=== PATIENT | female | born 1990 | race Caucasian/White ===

== ENCOUNTER 2019-06-19 05:30 | Inpatient (IN) | payer BC ==
[2019-06-19] MEDS ORDERED: CEFAZOLIN 2 GM in Premix Bag 1 BAG IVPB SCH (05:32)
[2019-06-19] MEDS ORDERED: Lactated Ringer's 1,000 ML IV SCH (05:32)
[2019-06-19] MEDS ORDERED: Bicitra 30 ML UDCUP PO SCH (05:32)
[2019-06-19] MEDS ORDERED: Ondansetron PF 4 MG/2 ML Vial IVP PRN ×3 (05:32→11:06)
[2019-06-19] MEDS ORDERED: Promethazine HCl 25 MG/ML VIAL IM PRN ×2 (05:32→06:57)
[2019-06-19] MEDS ORDERED: hydrALAZINE 20 MG/ML VIAL SLOW IVP PRN ×2 (05:32→11:06)
[2019-06-19 06:17] VITALS: BMI 42.0
[2019-06-19] MEDS ORDERED: MORPHINE 5 MG/10 ML PF VIAL ONE (06:47)
[2019-06-19] MEDS ORDERED: Ondansetron PF 4 MG/2 ML Vial ONE (06:48)
[2019-06-19] MEDS ORDERED: EPHEDRINE 25 MG/5 ML SYRINGE ONE (06:48)
[2019-06-19] MEDS ORDERED: Oxytocin 10 UNITS/ML VIAL ONE (06:48)
[2019-06-19] MEDS ORDERED: PHENYLEPHRINE-NS 100 MCG/ML 10 ML SYRINGE ONE (06:48)
[2019-06-19 06:57] LABS: Syphilis Antibody Nonreactive (Nonreactive); Syphilis Antibody Index 0.06 S/CO (<1.00 Non-Reactive)
[2019-06-19] MEDS ORDERED: L&D-Morphine 4 MG/ML VIAL SLOW IVP PRN (06:57)
[2019-06-19] MEDS ORDERED: diphenhydrAMINE 50 MG/ML VIAL IVP PRN (06:57)
[2019-06-19] MEDS ORDERED: Promethazine HCl 25 MG SUPP PR PRN (06:57)
[2019-06-19] MEDS ORDERED: Naloxone HCl 0.4 mg/ml Vial IVP PRN ×2 (06:57)
[2019-06-19] MEDS ORDERED: Naloxone HCl 0.4 mg/ml Vial IV PRN (06:57)
[2019-06-19] MEDS ORDERED: Ondansetron HCl/PF 4 MG/2 ML Vial IVP PRN (06:57)
[2019-06-19] MEDS ORDERED: HYDROmorphone 2 MG/ML VIAL SLOW IVP PRN (06:57)
[2019-06-19] MEDS ORDERED: Meperidine HCl/PF 25 MG/ML VIAL SLOW IVP PRN (06:57)
[2019-06-19 06:58] LABS: HBSAg Index 0.22 S/CO (0-0.99); Hep B Surf Ag Non-Reactive S/CO (NonReactive)
[2019-06-19 06:59] LABS: Hemoglobin 13.8 g/dL (12.0-16.0); Mean Corpuscular HGB CONC 34.4 g/dL (32.0-36.0); Mean Corpuscular Hemoglobin 31.4 pg (27.0-31.0); Mean Corpuscular Volume 91.3 fL (78.0-98.0); Mean Platelet Volume 10.3 fL (7.4-10.4); Platelet Count 109 thou/uL (130-400); RBC Distribution Width 15.1 % (11.5-14.5); Red Blood Cell (RBC) Count 4.39 mill/uL (4.20-5.40); White Blood Cell (WBC) Count 11.1 thou/uL (4.8-10.8)
[2019-06-19] MEDS ORDERED: Ketorolac Tromethamine 30 MG/ML VIAL IVP SCH (07:00)
[2019-06-19] MEDS ORDERED: Communication Order-Pharmacy FS SCH (07:00)
[2019-06-19] MEDS ORDERED: Methylergonovine 0.2 MG/ML VIAL ONE (10:17)
[2019-06-19] MEDS ORDERED: Misoprostol 200 MCG TAB ONE (10:17)
[2019-06-19] MEDS ORDERED: Misoprostol 200 MCG TAB PR SCH (10:45)
[2019-06-19] MEDS ORDERED: Methylergonovine 0.2 MG/ML VIAL IM SCH (10:45)
[2019-06-19] MEDS ORDERED: diphenhydrAMINE 25 MG CAP PO PRN (11:06)
[2019-06-19] MEDS ORDERED: Acetaminophen 325 MG TAB PO PRN (11:06)
[2019-06-19] MEDS ORDERED: Bisacodyl 10 MG SUPP PR PRN (11:06)
[2019-06-19] MEDS ORDERED: Simethicone Chewable 80 MG TAB PO PRN (11:06)
[2019-06-19] MEDS ORDERED: Acetaminophen/Codeine 30-300mg Tablet PO PRN (11:06)
[2019-06-19] MEDS ORDERED: Lanolin Ointment 7 GM TUBE TOP PRN (11:06)
[2019-06-19] MEDS: Enoxaparin Sodium 30 MG/0.3 ML SYRINGE SC SCH (12:21)
[2019-06-19] MEDS: Prenatal Vitamin 1 TAB PO SCH (12:21)
--- NOTE | 2019-06-19 12:30 | OP ---
DATE OF PROCEDURE: 06/19/2019 PREOPERATIVE DIAGNOSIS: 38-week 3 day intrauterine diamniotic dichorionic twin with baby B in unstable lie. POSTOPERATIVE DIAGNOSIS: 38-week 3 day intrauterine diamniotic dichorionic twin with baby B in unstable lie. Status post delivery. PROCEDURE: Primary low transverse section. [employer] CONSULTANT: Dr. Forde substituted out for Dr. Oliver after delivery of babies. ANESTHESIA: Spinal anesthetic. COMPLICATIONS: No complications. DESCRIPTION OF PROCEDURE: After adequate spinal anesthetic, patient was placed in supine position. A wedge was placed under the right flank. A Cheng catheter was placed and the abdomen was prepped and draped in usual sterile technique. A Pfannenstiel incision was made in the inferior aspect of the abdomen. Subcutaneous tissue opened with sharp dissection. The fascia was opened with sharp dissection. Peritoneum opened with sharp and blunt dissection. Noted the abdomen was still with a gravid uterus. An Frank O retractor was placed and a low-transverse incision was made on the uterus. Membranes were ruptured and clear fluid was encountered. Baby A was delivered from vertex presentation without difficulty. Infant breathed and cried spontaneously. The cord was clamped and cut and infant was handed to the care of the neonatology team. The membranes were ruptured for baby B. Clear fluid was encountered and a viable male infant was delivered from footling breech presentation without difficulty. Infant breathed and cried spontaneously. The cord was clamped and cut and handed to the care of the neonatology team. Cord blood was obtained from each umbilical cord. An additional clamp was placed over the cord for baby B. The placenta was delivered manually, appeared intact and was sent to pathology. Wet lap was used to wipe clean the uterus and hysterotomy edges were grasped with ring forceps. Hysterotomy was then closed in one layer continuous fashion with 1 Monocryl with good hemostasis. The gutters were checked, few clots were removed. There was no active bleeding. The peritoneal edges were then closed in continuous fashion using 2-0 chromic and the fascia was then closed in continuous fashion using 0 Vicryl. Sponge and instrument counts were correct. The subcutaneous tissue was then irrigated and the subcutaneous tissue was then closed in continuous fashion using 0 plain suture. The skin was then closed using 4-0 Monocryl in subcuticular fashion. Patient tolerated the procedure well, did go to recovery room in good condition. Noted that baby A is a viable male , weight 6 pounds 15 ounces with Apgars 8 at 1 minute and 9 at 5 minutes, and baby B is a viable male , weight 7 pounds 4 ounces, Apgars 8 at 1 minute and 9 at 5 minutes. Both in level one nursery. QBL is pending at this time. EBL approximately 750 mL. Job ID: [id number]
[2019-06-19] MEDS: Ibuprofen 800 MG TAB PO SCH ×2 (14:41→21:54)
[2019-06-19] MEDS: Ketorolac Tromethamine 30 MG/ML VIAL IVP PRN ×2 (14:47→22:27)
--- NOTE | 2019-06-19 14:52 | PDOC.EVN ---
Event Note - Event Note Event Note: I was called to recover for pt eval due to greater than normal post operative/ post bleeding. Pt had qbl of about 450cc at time of delivery and another 400cc in recovery. On arrival pt was awake and alert. vital signs normal. PT had good color. Cheng catheter was in place and good urine output was noted. On bimanual exam the lower uterine segment was relatively atonic. 200cc of clot was evacuated. 0.2mg methergine IM and 800mcg cytotec pr was given. It was later reported that her bleeding much improved. further intervention was nolonger needed.
[2019-06-19] MEDS: Docusate Calcium (SURFAK) 240 MG CAP PO SCH (21:54)
[2019-06-20] MEDS: Ketorolac Tromethamine 30 MG/ML VIAL IVP PRN (04:33)
[2019-06-20] MEDS: Ibuprofen 800 MG TAB PO SCH ×3 (05:37→21:42)
[2019-06-20 06:03] LABS: Hemoglobin 11.4 g/dL (12.0-16.0); Mean Corpuscular HGB CONC 34.5 g/dL (32.0-36.0); Mean Corpuscular Hemoglobin 31.3 pg (27.0-31.0); Mean Corpuscular Volume 90.7 fL (78.0-98.0); Mean Platelet Volume 9.5 fL (7.4-10.4); Platelet Count 88 thou/uL (130-400); Red Blood Cell (RBC) Count 3.63 mill/uL (4.20-5.40); White Blood Cell (WBC) Count 10.8 thou/uL (4.8-10.8)
--- NOTE | 2019-06-20 07:57 | OP ---
DATE OF PROCEDURE: 06/19/2019 Ms. Ivonne Young is a 29-year-old female, who underwent a primary with twin gestation. Dr. Berna Jones is a primary surgeon. For complete details, please refer to her operative note. Dr. Forde and Santy functioned as her nurse first aid. Job ID: [id number]
[2019-06-20] MEDS: Docusate Calcium (SURFAK) 240 MG CAP PO SCH ×2 (08:50→21:42)
[2019-06-20] MEDS: Prenatal Vitamin 1 TAB PO SCH (08:50)
[2019-06-20] MEDS: Enoxaparin Sodium 30 MG/0.3 ML SYRINGE SC SCH (08:52)
[2019-06-21] MEDS: HYDROcodone/Acetaminophen 5/325 mg Tablet PO PRN ×4 (00:27→21:02)
[2019-06-21] MEDS: Ibuprofen 800 MG TAB PO SCH ×3 (05:20→21:02)
[2019-06-21 06:57] LABS: Mean Corpuscular HGB CONC 33.9 g/dL (32.0-36.0); Mean Corpuscular Hemoglobin 31.5 pg (27.0-31.0); Mean Platelet Volume 9.4 fL (7.4-10.4); Platelet Count 105 thou/uL (130-400); RBC Distribution Width 15.2 % (11.5-14.5); White Blood Cell (WBC) Count 10.2 thou/uL (4.8-10.8)
[2019-06-21] MEDS: Prenatal Vitamin 1 TAB PO SCH (08:27)
[2019-06-21] MEDS: Enoxaparin Sodium 30 MG/0.3 ML SYRINGE SC SCH (08:27)
[2019-06-21] MEDS: Docusate Calcium (SURFAK) 240 MG CAP PO SCH ×2 (08:27→21:02)
[2019-06-21 20:06] VITALS: BP 111/64; TEMP 98
[2019-06-22] MEDS: Ibuprofen 800 MG TAB PO SCH ×2 (05:59→13:09)
[2019-06-22] MEDS: Docusate Calcium (SURFAK) 240 MG CAP PO SCH (09:18)
[2019-06-22] MEDS: Enoxaparin Sodium 30 MG/0.3 ML SYRINGE SC SCH (09:18)
[2019-06-22] MEDS: Prenatal Vitamin 1 TAB PO SCH (09:18)
== END 2019-06-22 13:50 | disposition home or self-care (01) | DRG 787 ==
LOC: L&D 05:30 → 3SW 12:06
PROVIDERS: ADMIT Family Medicine; ATTEND Family Medicine
PROC: 10D00Z1 Extraction of Products of Conception, Low, Open Approach (ICD-10-PCS; principal; 2019-06-19)
PROC: 0UC97ZZ Extirpation of Matter from Uterus, Via Natural or Artificial Opening (ICD-10-PCS; 2019-06-19)
DX: O30.043 Twin pregnancy, dichorionic/diamniotic, third trimester (principal); O72.1 Other immediate postpartum hemorrhage; Z37.2 Twins, both liveborn; Z3A.38 38 weeks gestation of pregnancy; O99.214 Obesity complicating childbirth; E66.9 Obesity, unspecified; O32.1XX2 Maternal care for breech presentation, fetus 2
CPT/HCPCS: 36415; 51702; 85027; 86780; 86850; 86900; 86901; 87340; 88307; J1650; J1885; J2210; J2274; J2405; J2590

== ENCOUNTER 2022-03-30 14:42 | Outpatient (CLI) | payer BC | END 2022-03-30 14:43 | disposition home or self-care (01) | LOC: SCSRAD 14:42 | PROVIDERS: ATTEND Family Medicine | DX: M54.42 Lumbago with sciatica, left side (principal); M47.816 Spondylosis without myelopathy or radiculopathy, lumbar region | CPT/HCPCS: 72100 ==

== ENCOUNTER 2022-12-31 07:33 | Outpatient (CLI) | payer BC | END 2022-12-31 07:34 | disposition home or self-care (01) | LOC: BICULT 07:33 | PROVIDERS: ATTEND Family Medicine | DX: N92.6 Irregular menstruation, unspecified (principal); N83.202 Unspecified ovarian cyst, left side; R93.89 Abnormal findings on diagnostic imaging of other specified body structures; Z97.5 Presence of (intrauterine) contraceptive device | CPT/HCPCS: 76856; 93976 ==